=== PATIENT | male | born 1950 | race Caucasian/White ===

== ENCOUNTER 2020-09-09 10:05 | Observation (INO) | payer MEDICARE ==
[~2020-09-09] VITALS: Ht 190.5 cm; Wt 103.6 kg
[2020-09-09 11:00] VITALS: BP 156/83
[2020-09-09] MEDS ORDERED: EZET10TA70 PO (11:00)
[2020-09-09] MEDS ORDERED: SODIUM CHLORIDE 0.9% 1,000 ML IV SCH (11:00)
[2020-09-09] MEDS ORDERED: ATOR40TA78 PO (11:00)
[2020-09-09] MEDS ORDERED: AMIO200T42 PO (11:00)
[2020-09-09] MEDS ORDERED: METO25TA91 PO (11:00)
[2020-09-09] MEDS ORDERED: APIX5TAB PO (11:00)
[2020-09-09] MEDS ORDERED: LISI-170 PO (11:00)
[2020-09-09 11:43] LABS: BASOPHILS % (AUTO) 1 % (0-1); EOSINOPHILS % (AUTO) 1 % (1-7); LYMPHOCYTES % (AUTO) 25 % (22-44); MEAN CORPUSCULAR HEMOGLOBIN 29.9 pg (27.5-34.5); MEAN CORPUSCULAR HGB CONC 33.7 g/dL (33.2-36.2); MEAN PLATELET VOLUME 7.1 fL (7.4-10.4); MONOCYTES % (AUTO) 8 % (2-9); NEUTROPHILS % (AUTO) 66 % (42-75); PLATELET COUNT 206 x10^3/uL (130-400); RED BLOOD COUNT 4.64 x10^6/uL (4.38-5.82); RED CELL DISTRIBUTION WIDTH 16.4 % (9.4-14.8)
[2020-09-09 11:46] LABS: ALANINE AMINOTRANSFERASE 43 U/L (12-78); ALBUMIN 3.7 g/dL (3.4-5.0); ANION GAP 5 mmol/L (5-15); CALCIUM 8.7 mg/dL (8.5-10.1); CHLORIDE 112 mmol/L (98-107); CREATININE 1.02 mg/dL (0.7-1.3)
[2020-09-09 11:54] LABS: INTERNATIONAL NORMALIZED RATIO 1.09 (0.93-1.1); PROTHROMBIN TIME 11.6 Seconds (9.6-11.5)
[2020-09-09 11:57] LABS: ALKALINE PHOSPHATASE 70 U/L (45-117); BILIRUBIN,TOTAL 0.6 mg/dL (0.2-1.0); TOTAL PROTEIN 7.2 g/dL (6.4-8.2)
[2020-09-09] MEDS ORDERED: MIDAZOLAM 1 MG/ML, 2ML ONE (12:03)
[2020-09-09] MEDS ORDERED: FENTANYL PF 250 MCG/5ML ONE (12:03)
[2020-09-09] MEDS ORDERED: LIDOCAINE 1%, 20ML ONE (12:03)
[2020-09-09] MEDS ORDERED: SUCCINYLCHOLINE 20 MG/ML, 10ML ONE (12:08)
[2020-09-09] MEDS ORDERED: HEPARIN 1,000 UNITS/ML, 10ML ONE ×2 (14:20)
[2020-09-09] MEDS ORDERED: ONDANSETRON 2MG/ML, 2ML ONE (14:20)
[2020-09-09] MEDS ORDERED: PROPOFOL 10 MG/ML, 20ML ONE (14:20)
[2020-09-09] MEDS ORDERED: ROCURONIUM 10MG/ML,5ML ONE (14:20)
[2020-09-09] MEDS ORDERED: DEXAMETHASONE 4 MG/ML, 1ML ONE (14:20)
[2020-09-09] MEDS ORDERED: OXYcodone 5 MG/5 ML ORAL.SOL UDC PO PRN (14:30)
[2020-09-09] MEDS ORDERED: EPHEDRINE 50 MG/ML, 1ML IM PRN (14:30)
[2020-09-09] MEDS ORDERED: morphine SULFATE 10 MG/ML, 1ML IVPush PRN (14:30)
[2020-09-09] MEDS ORDERED: FENTANYL PF 100 MCG/2ML IV PRN (14:30)
[2020-09-09] MEDS ORDERED: ACETAMINOPHEN 325 MG TABLET PO PRN ×2 (14:30)
[2020-09-09] MEDS ORDERED: MEPERIDINE/PF 25MG/0.5ML IVPush PRN (14:30)
[2020-09-09] MEDS ORDERED: LABETALOL 5MG/ML, 20ML IV PRN (14:30)
[2020-09-09] MEDS ORDERED: DIAZEPAM 5 MG/ML, 2ML IVPush PRN (14:30)
[2020-09-09] MEDS ORDERED: ZOLPIDEM 5MG TABLET PO PRN (14:30)
[2020-09-09] MEDS ORDERED: ONDANSETRON 2MG/ML, 2ML IVPush PRN ×2 (14:30)
[2020-09-09] MEDS ORDERED: DIPHENHYDRAMINE 50 MG/ML, 1ML IVPush PRN (14:30)
[2020-09-09] MEDS ORDERED: EPHEDRINE 50 MG/ML, 1ML IVPush PRN (14:30)
[2020-09-09] MEDS ORDERED: PROMETHAZINE 25 MG/ML, 1ML IVPush PRN (14:30)
[2020-09-09 19:30] VITALS: BP 144/87
[2020-09-09] MEDS: COLCHICINE 0.6 MG CAPSULE PO SCH (20:06)
[2020-09-09] MEDS: APIXABAN 5 MG TABLET PO SCH (20:06)
[2020-09-09] MEDS ORDERED: APIXABAN 5 MG TABLET PO SCH (21:00)
[2020-09-09] MEDS ORDERED: ATORVASTATIN 40 MG TABLET PO SCH (21:00)
[2020-09-10 03:12] VITALS: BP 122/76
[2020-09-10 07:15] VITALS: BP 135/83
[2020-09-10] MEDS ORDERED: LISINOPRIL 10 MG TABLET PO SCH (09:00)
[2020-09-10] MEDS ORDERED: EZETIMIBE 10 MG TABLET PO SCH (09:00)
[2020-09-10] MEDS ORDERED: COLC0.6C3 PO (09:55)
[2020-09-10] MEDS: COLCHICINE 0.6 MG CAPSULE PO SCH (10:57)
[2020-09-10] MEDS: APIXABAN 5 MG TABLET PO SCH (10:59)
== END 2020-09-10 12:15 | disposition home or self-care (01) ==
LOC: CACL 10:05 → ORIP 14:03 → 5SO 15:21 → CACL 15:35 → 5SO 16:14 → DCLOUNGE 09-10 12:02
PROVIDERS: ADMIT Internal Medicine Cardiovascular Disease; ATTEND Internal Medicine Cardiovascular Disease
DX: I48.91 Unspecified atrial fibrillation (principal); Z20.822 Contact with and (suspected) exposure to COVID-19; I48.92 Unspecified atrial flutter; I10 Essential (primary) hypertension; Z79.01 Long term (current) use of anticoagulants; Z79.899 Other long term (current) drug therapy
CPT/HCPCS: 36415; 71046; 80053; 84443; 85025; 85347; 85610; 93005; 93306; 93613; 93656; 93657; 93662; C1730; C1759; C1766; C1893; C1894; G0378; J0330; J1100; J1644; J2250; J2405; J2704; J3010; J3490; U0003; U0005